=== PATIENT | male | born 1950 | race Caucasian/White ===

== ENCOUNTER 2025-04-28 05:56 | Day surgery (SDC) | payer MEDICARE ==
--- NOTE | 2025-04-21 14:39 | ELECTROCARDIOGRAPH REPORT ---
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 RYAN Troy Measurements Intervals [place] Rate: 87 P: 74 DE: 153 QRS: 82 QRSD: 154 T: 37 QT: 386 QTc: 465 Interpretive Statements Sinus rhythm Atrial premature complex Right bundle branch block Electronically Signed On 04-21-2025 17:07:[address] RYAN Troy Please click the below link to view image of tracing.
[2025-04-21 14:40] LABS: MEAN PLATELET VOLUME 8.0 FL (7.4-10.4); PRE OP HEMATOCRIT 45.0 % (42.0-52.0); PRE OP HEMOGLOBIN 15.5 g/dL (14.0-17.9); PRE OP PLATELET COUNT 191 X10'3 (140-440); PRE OP WHITE BLOOD COUNT 6.3 10'3 (4.8-10.8); RED CELL DISTRIBUTION WIDTH 13.3 % (11.5-14.5)
[2025-04-21 14:52] LABS: CREATININE 0.89 MG/DL (0.60-1.10); PRE OP ALT 37 U/L (30-65); PRE OP ANION GAP 5 (8-16); PRE OP AST 24 U/L (10-37); PRE OP BILIRUB, TOTAL 0.4 MG/DL (0.0-1.0); PRE OP GLUCOSE 104 MG/DL (70-104); PRE OP POTASSIUM 4.1 MMOL/L (3.4-5.1); PRE OP SODIUM 140 MMOL/L (135-145); TOTAL CARBON DIOXIDE 28.9 MMOL/L (24-32); eGFR 84 ML/MIN
[2025-04-28] VITALS (12 sets, daily range): BP systolic 127–172; BP diastolic 64–98; PULSE 57–77; RESP 13–22; TEMP 98.8; O2SAT 94–98
[~2025-04-28] VITALS: Ht 172.7 cm; Wt 115.9 kg
[~2025-04-28 05:56] MED LIST: ALBU8HFA PO; ATOR20TA66 PO; FLUT1BLS9 PO; IPRA3AMP31 NEB; LOSA50TA64 PO; albuterol 2.5 MG/3 ML nebule NEB PRN
[2025-04-28] MEDS: ringers solution, lacted 1,000 ML IV SCH (06:23)
[2025-04-28] MEDS: ceFAZolin 2gm/dext,iso 50mL 50 ML IV ONE (06:24)
[2025-04-28] MEDS ORDERED: BUPIVAcaine 2.5mg/ml inj 50ml vial (contains preservative) ONE (06:52)
[2025-04-28] MEDS ORDERED: fentaNYL/PF 50MCG/1 ML 2ML syringe ONE (07:59)
[2025-04-28] MEDS ORDERED: propofol inj 20 ML IV ONE (07:59)
[2025-04-28] MEDS ORDERED: midazolam 1 mg/ML 2ml injection ONE (07:59)
[2025-04-28] MEDS ORDERED: hydrALAZINE 20mg/ml inj. IV PRN (08:05)
[2025-04-28] MEDS ORDERED: ringers solution, lacted 1,000 ML IV SCH (08:05)
[2025-04-28] MEDS ORDERED: labetalol 20mg/4ml (5mg/ml) syringe IV PRN (08:05)
[2025-04-28] MEDS ORDERED: ondansetron/PF 4mg/2ml inj IV PRN (08:05)
[2025-04-28] MEDS ORDERED: HYDROmorphone/PF 0.2 MG/ML SYRINGE IV PRN (08:05)
[2025-04-28] MEDS ORDERED: fentaNYL/PF 50MCG/1 ML 2ML syringe IV PRN (08:05)
[2025-04-28] MEDS ORDERED: ePHEDrine 50MG/ML INJ. ONE (08:27)
[2025-04-28] MEDS ORDERED: dexamethasone sod phosphate 4mg/ml inj. ONE (08:27)
[2025-04-28] MEDS: BUPIVAcaine/PF 2.5 mg/ml (0.25%) 30ml vial IJ ONE (08:35)
[2025-04-28] MEDS ORDERED: ondansetron/PF 4mg/2ml inj ONE (08:53)
--- NOTE | 2025-04-28 09:02 | OPERATIVE REPORT ---
Operative Report Providers to ~ Date of Procedure: Apr 28, 2025 Pre-Operative Diagnosis: Right hydrocele Post-Operative Diagnosis SAME as PRE-Op Procedure Performed One. Right hydrocelectomy. Two. Right appendix testis removal. Surgeon: Gelacio Segovia MD Glue Bone Drier None. Anesthesiologist: Braden Massey Type of Anesthesia: General Findings: Successful right open hydrocelectomy with bottle neck type repair. Complications None. Prosthetics\Implants used: None. Estimated Blood Loss: Minimal. Specimen Removed: 200 mL of straw-colored hydrocele fluid. Description of Procedure: The patient was under the effects of general anesthesia with his genitals prepped and draped in sterile fashion. His genitals had not been clipped of hair initially and the staff was instructed to shave the entire scrotum and re-p rep and re-drape the patient. A 4 cm incision directly over a right hydrocele at the mid scrotum was performed sharply an electrocautery was used to dissect through dartos fascia down to the level of the hydrocele sac. The sac was bluntly dissected from dartos fascia and delivered through the incision. A perforation at the anterior face of the hydrocele sac was performed in 200 mL of straw-colored fluid were drained. The hydrocele sac was then completely opened along its anterior face and the hydrocele sac was then marsupialized behind the testicle and spermatic cord. The more superior lies hydrocele sac was then sewn in place using Vicryl sutures in running fashion taking care to not strangulate the spermatic cord. We then replaced the testicle back into the scrotum and closed dartos fascia in running fashion with absorbable suture and then closed overlying skin in running fashion also with absorbable sutures prachi in the end of the procedure. His incision was infiltrated with local anesthetic at the end of the case. GELACIO SEGOVIA MD Apr 28, 2025 09:02
[2025-04-28] MEDS: fentaNYL/PF 50MCG/1 ML 2ML syringe IV PRN (09:32)
[2025-04-28] MEDS: acetaminophen 1,000mg/100ml IV 100 ML IV PRN (09:33)
== END 2025-04-28 11:37 | disposition home or self-care (01) ==
LOC: PAS 05:56
PROVIDERS: ATTEND Urology
DX: N43.3 Hydrocele, unspecified (principal); E78.5 Hyperlipidemia, unspecified; E66.9 Obesity, unspecified; I45.10 Unspecified right bundle-branch block; I49.1 Atrial premature depolarization; I10 Essential (primary) hypertension; J44.9 Chronic obstructive pulmonary disease, unspecified; Z68.41 Body mass index [BMI] 40.0-44.9, adult; Z98.890 Other specified postprocedural states; Z85.07 Personal history of malignant neoplasm of pancreas
CPT/HCPCS: 36415; 55040; 80053; 85025; 93005; A4215; A4615; A4618; A7000; J0131; J1100; J2250; J2405; J2704; J3010; J3490; J7030; J7120; Z7506; Z7508; Z7512; Z7610